=== PATIENT | male | born 1965 | race African-American/Black ===

== ENCOUNTER 2023-01-13 17:15 | Inpatient (IN) | payer OTHER ==
[~2023-01-13] VITALS: Ht 195.6 cm; Wt 158.8 kg
--- NOTE | 2023-01-13 19:40 | NUR ---
RECEIVED PATIENT LYING ON THE BED, PATIENT IS AWAKE, ALERT AND ORIENTED X4, DENIES PAIN, IN NO ACUTE DISTRESS. PATIENT'S BILATERAL LOWER EXTREMITIES WRAPPED WITH RAFAEL BANDAGE. PATIENT HAS G22 ON LEFT AC, IV ACCESS SITE, LINE IS INTACT AND PATENT, SALINE LOCK. PATIENT IS CONTINENT OF BLADDER, HAS URINAL AT BEDSIDE. CALL LIGHT WITHIN REACH.
[2023-01-13 20:00] VITALS: BP 143/80
--- NOTE | 2023-01-13 20:10 | NUR ---
VITALS TAKEN T 97.5, P 74, BP 143/80, RESP 18, O2 SATS 94% ON ROOM AIR.
--- NOTE | 2023-01-13 21:47 | NUR ---
1810: RECEIVED PT FROM ADMITTING. PT AMBULATED TO BED WITH A STEADY GAIT. NO C/O PAIN OR SOB. NO ACUTE DISTRESS NOTED AT THIS TIME. [id number].
--- NOTE | 2023-01-13 21:48 | NUR ---
1939: REPORT OFF TO OBED MICHELE. PT RESTING IN BED. DENIES ANY SOB OR PAIN. NO ACUTE DSITRESS NOTED AT THIS TIME. [id number].
[2023-01-14] MEDS ORDERED: ACETAMINOPHEN 325 MG TAB PO PRN
[2023-01-14] MEDS ORDERED: ONDANSETRON 4 MG/2 ML VIAL IVP PRN
[2023-01-14] MEDS ORDERED: LORazepam 2 MG/ML VIAL IVP PRN
[2023-01-14] MEDS ORDERED: MORPHINE SULFATE 2 MG/ML SYR IVP PRN
[2023-01-14] MEDS: NACL 0.9% 1,000 ML IV SCH ×3 (00:28→08:44)
--- NOTE | 2023-01-14 00:28 | NUR ---
PATIENT STARTED ON NS @125 ML/HR ORDERED ON LEFT AC G22 ACCESS SITE. LINE PATENT AND INTACT. PATIENT DENIES PAIN UPON ASSESSMENT, NO DISTRESS NOTED. CALL LIGHT WITHIN REACH. WILL CONTINUE TO MONITOR THE PATIENT.
--- NOTE | 2023-01-14 03:00 | NUR ---
WOUND CARE DONE ON WOUNDS ON R/L FOOT, DRESSING CHANGED, PICTURES TAKEN.
[2023-01-14 04:00] VITALS: BP 151/64
--- NOTE | 2023-01-14 04:00 | NUR ---
PATIENT IS AWAKE, DENIES PAIN, NO DISTRESS NOTED. CALL LIGHT WITHIN REACH.
[2023-01-14 06:02] LABS: BASOPHILS # (AUTO) 0.1 K/uL (0.00-0.22); BASOPHILS % (AUTO) 0.9 % (0.0-2.0); EOSINOPHILS # (AUTO) 0.4 K/uL (0-0.4); EOSINOPHILS % (AUTO) 6.9 % (0.0-4.0); HEMATOCRIT 28.5 % (36-52); HEMOGLOBIN 9.5 g/dL (12.0-18.0); LYMPHOCYTES # (AUTO) 1.3 K/uL (2.0-11.5); LYMPHOCYTES % (AUTO) 22.4 % (20.5-51.1); MEAN CORPUSCULAR HEMOGLOBIN 30 pg (27-31); MEAN CORPUSCULAR HGB CONC 33 g/dL (33-37); MEAN CORPUSCULAR VOLUME 88.4 fL (80-94); MONOCYTES # (AUTO) 0.7 K/uL (0.8-1.0); NEUTROPHILS # (AUTO) 3.4 K/uL (1.8-7.7); NEUTROPHILS % (AUTO) 57.8 % (42.2-75.2); PLATELET COUNT (AUTO) 171 K/uL (140-450); RED BLOOD CELL COUNT(AUTO) 3.22 MIL/uL (4.20-6.10); RED CELL DISTRIBUTION WIDTH 13.8 % (11.6-13.7); WHITE BLOOD COUNT (AUTO) 5.9 K/uL (4.8-10.8)
--- NOTE | 2023-01-14 06:47 | NUR ---
PATIENT IS IN STABLE CONDITION. WILL ENDORSE TO DAY NURSE FOR CONTINUITY OF CARE.
[2023-01-14] MEDS ORDERED: PIPERACILLIN/TAZOBACTAM 3.375 GM in DEXTROSE 5% 50 ML IV SCH (07:03)
--- NOTE | 2023-01-14 07:10 | NUR ---
RECEIVED REPORT FROM OBED FOR CONTINUITY OF CARE. INITIAL ASSESSMENT DONE. ALERT AND ORIENTED X 4. IVF INFUSING WELL. NO C/O PAIN OR DISCOMFORT. CALL LIGHT KEPT WITHIN REACH. WILL CONTINUE TO MONITOR.
--- NOTE | 2023-01-14 07:25 | NUR ---
Patient's Plan of Care was discussed and reviewed with STEEL WELDER: []Lianet
[2023-01-14 08:00] VITALS: BP 177/79
[2023-01-14 08:36] LABS: ALBUMIN 2.7 g/dL (3.4-5.0); ANION GAP 16.9 (8-16); CARBON DIOXIDE 24.8 mmol/L (21-32); CREATININE 1.7 mg/dL (0.6-1.3); MAGNESIUM 1.4 mg/dL (1.8-2.4); POTASSIUM 4.7 mmol/L (3.5-5.1); TOTAL BILIRUBIN 0.3 mg/dL (0.0-1.0)
--- NOTE | 2023-01-14 09:17 | NUR ---
PATIENT HAS BEEN SCREENED AND CATEGORIZED MODERATE NUTRITION RISK. PATIENT WILL BE SEEN WITHIN 3-5 DAYS OF ADMISSION. REVIEWED BY MARA KOTHARI RD
[2023-01-14] MEDS ORDERED: VANCOMYCIN PER PHARMACY MC PRN (09:20)
[2023-01-14] MEDS: NIFEdipine 90 MG TABER PO SCH (10:02)
--- NOTE | 2023-01-14 10:02 | NUR ---
SCHEDULED MEDICATION GIVEN. TOLERATING WELL.
--- NOTE | 2023-01-14 10:49 | NUR ---
WOUND CONSULT PENDING, POC DISCUSSED WITH DR. SAEID MCKEON PODIATRY CONSULT WITH DR. GARCIA. DR. GARCIA NOTIFIED.
[2023-01-14] MEDS: APIXABAN 2.5 MG TAB PO SCH ×2 (12:11→20:56)
--- NOTE | 2023-01-14 12:11 | NUR ---
SCHEDULED MEDICATIONS GIVEN. TOLERATING WELL.
[2023-01-14] MEDS: GABAPENTIN 300 MG CAP PO SCH ×2 (12:12→20:57)
[2023-01-14] MEDS: VANCOMYCIN 1,500 MG in DEXTROSE 5% 500 ML IV SCH (12:28)
--- NOTE | 2023-01-14 12:28 | NUR ---
VANCOMYCIN IV WAS GIVEN BY FRIDA MICHELE. TOLERATING WELL.
--- NOTE | 2023-01-14 13:05 | NUR ---
[facility] AT BEDSIDE TO HAND POTTER PT FOR MRI AT [facility]. PER PARAMEDICS PT NEEDS FOR BARIATRIC GURNEY. THEY WILL COME BACK WITH NO ETA.
[2023-01-14 13:46] LABS: APPEARANCE,URINE CLEAR (CLEAR); BILIRUBIN,URINE NEGATIVE (NEGATIVE); BLOOD, URINE 2+ (NEGATIVE); COLOR,URINE YELLOW (YELLOW); LEUKOCYTE ESTERASE ,URINE NEGATIVE (NEGATIVE); NITRITE, URINE NEGATIVE (NEGATIVE); PH,URINE 6.5 (5.0-9.0); UGLUCOSE NEGATIVE (NEGATIVE)
--- NOTE | 2023-01-14 14:24 | NUR ---
PT LEFT. SCHEDULED FOR MRI AT [facility] [place]. TRANSPORTED BY [facility] VIA GURNEY. ACCOMPANIED BY 4 MAL[employer] TRANSPORTER. REMAINS STABLE.
[2023-01-14] MEDS: PIPERACILLIN/TAZOBACTAM 3.375 GM in DEXTROSE 5% 50 ML IV SCH ×2 (15:03→20:55)
[2023-01-14 15:53] LABS: RBC,URINE 11-20 (MOD) /HPF (0-5); WBC,URINE NONE SEEN /HPF (0-5)
--- NOTE | 2023-01-14 16:34 | NUR ---
DC PLANNING ADMITTED A 57 YEAR OLD PATIENT FOR DIABETIC FOOT ULCER .MRI OF LEFT FOOT REQUESTED.ARRANGEMENT FOR [facility] DONE AT [facility]..PATIENT PICKED UP AT 1350.
--- NOTE | 2023-01-14 16:47 | NUR ---
DC PLANNING ASSESSMENT COMPLETE PLEASE REFER TO ASSESSMENT FOR ADDITIONAL DETAILS [facility] CURRENTLY WORKING ON TRANSFER TO [place] FOR MRI. TRISHA UNABLE TO FINISH ASSESSMENT NEPH CAME IN TO MEET PT AT BEDSIDE. TRISHA ATTEMPTED TO MEET PT AT BEDSIDE HOWEVER PT GONE FOR MRI. SW TO FOLLOW ON 01/17 IF PATIENT STILL ADMITTED. Addendum: 01/14/23 at 1648 by Johan PEPE Amended: Links added.
--- NOTE | 2023-01-14 16:52 | NUR ---
PT RETURN FROM MRI. TRANSPORTED BY [facility] VIA GURNEY. ALERT AND ORIENTED X 4. RESP. EVEN AND UNALORED. IV SITE INTACT TO LAC. NO C/O PAIN OR DISCOMFORT. WILL CONTINUE TO MONITOR.
--- NOTE | 2023-01-14 19:10 | NUR ---
PT MAGNESIUM 1.4.DR. BREAUX NOTIFIED, AWAITING FOR RESPONSE.
--- NOTE | 2023-01-14 19:25 | NUR ---
REPORT GIVEN TO NIGHT NURSE DEBORAH FOR CONTINUITY OF CARE. REMAINS STABLE.
--- NOTE | 2023-01-14 19:30 | NUR ---
RECEIVED REPORT FROM DAY SHIFT RN FOR CONTINUITY OF CARE. PT IS AWAKE AND ALERT RESTING IN BED. PT NOT IN ANY DISTRESS. PT HAS BANDAGE ON BILATERAL FEET WITH ULCERS. PT HAS LEFT AC 22 GAUGE RUNNING NS 125 CC/HR. POC DISCUSSED. CALL LIGHT WITHIN REACH. WILL CONTINUE TO MONITOR THE PT.
[2023-01-14] MEDS ORDERED: MAG SULF 2000 MG/WATER PREMIX 50 ML IV ONE (19:45)
[2023-01-14 20:00] VITALS: BP 153/75
[2023-01-14] MEDS: INSULIN LISPRO SLIDING SCALE 100 UNITS/ML VIAL SUBQ PRN (20:56)
[2023-01-14] MEDS: carvediloL 6.25 MG TAB PO SCH (20:57)
[2023-01-14] MEDS: BLOOD GLUCOSE MONITORING 1 DEV DEV FS SCH (20:57)
--- NOTE | 2023-01-14 22:30 | NUR ---
PT MAG IS 1.4. MESSAGED DR. BREAUX AND ORDERED MAG RIDER 2G. MAG RIDER WAS GIVEN.
[2023-01-15] MEDS: VANCOMYCIN 1,500 MG in DEXTROSE 5% 500 ML IV SCH ×3 (01:23→19:41)
--- NOTE | 2023-01-15 01:23 | NUR ---
SCHEDULE VANCO GIVEN RIGHT AFTER MAG RIDER WAS FINISHED. PT NOT IN ANY DISTRESS AT THIS TIME. WILL CONTINUE TO MONITOR.
[2023-01-15] MEDS: PIPERACILLIN/TAZOBACTAM 3.375 GM in DEXTROSE 5% 50 ML IV SCH ×3 (05:59→22:55)
--- NOTE | 2023-01-15 06:15 | NUR ---
PT WAS UNABLE TO RECEIVE FULL DOSE OF VANCOMYCIN. FIXED THE IV PUMP SEVERAL TIMES THROUGHOUT THE NIGHT BUT THE PUMP KEPT NOT WORKING PROPERLY. IV PUMP ENDED UP BEING DEFECTIVE. NEW IV PUMP PLACED AND ZOSYN WAS GIVEN.
[2023-01-15] MEDS: BLOOD GLUCOSE MONITORING 1 DEV DEV FS SCH ×4 (06:50→20:09)
--- NOTE | 2023-01-15 07:15 | NUR ---
ENDORSED PT TO DAY SHIFT RN FOR CONTINUITY OF CARE. PT IS STABLE.
--- NOTE | 2023-01-15 07:16 | NUR ---
RECEIVED BEDSIDE REPORT FROM NIGHTSHIFT NURSE. PT IS AWAKE IN BED, AOX4, NO SIGNS OF DISTRESS, NO REPORTS OF PAIN OR DISCOMFORT. ON RM AIR, IV TO LEFT AC 22G. NO FURTHER NEEDS ARE TO BE MET AT THIS TIME, WILL CONTINUE WITH CARE. BED IN LOWEST POSITION, 2 SIDE RAILS UP, CALL LIGHT PLACED WITHIN REACH. REORIENTED PT TO CALL LIGHT.
[2023-01-15 08:00] VITALS: BP 161/74
[2023-01-15] MEDS: NACL 0.9% 1,000 ML IV SCH ×3 (08:00→19:30)
[2023-01-15] MEDS: carvediloL 6.25 MG TAB PO SCH ×2 (10:00→20:09)
[2023-01-15] MEDS: GABAPENTIN 300 MG CAP PO SCH ×2 (10:00→20:09)
[2023-01-15] MEDS: LOSARTAN 25 MG TAB PO SCH (10:00)
[2023-01-15] MEDS: PANTOPRAZOLE 40 MG TABEC PO SCH (10:01)
[2023-01-15] MEDS: NIFEdipine 90 MG TABER PO SCH (10:01)
[2023-01-15] MEDS: APIXABAN 2.5 MG TAB PO SCH ×2 (10:02→20:08)
[2023-01-15 10:28] LABS: BASOPHILS % (AUTO) 0.5 % (0.0-2.0); EOSINOPHILS # (AUTO) 0.4 K/uL (0-0.4); EOSINOPHILS % (AUTO) 8.2 % (0.0-4.0); HEMATOCRIT 30.1 % (36-52); LYMPHOCYTES # (AUTO) 0.7 K/uL (2.0-11.5); MEAN CORPUSCULAR HEMOGLOBIN 29 pg (27-31); MEAN CORPUSCULAR HGB CONC 33 g/dL (33-37); MEAN CORPUSCULAR VOLUME 88.5 fL (80-94); MONOCYTES # (AUTO) 0.5 K/uL (0.8-1.0); MONOCYTES % (AUTO) 9.8 % (1.7-9.3); NEUTROPHILS # (AUTO) 3.3 K/uL (1.8-7.7); NEUTROPHILS % (AUTO) 67.5 % (42.2-75.2); PLATELET COUNT (AUTO) 190 K/uL (140-450); RED CELL DISTRIBUTION WIDTH 13.9 % (11.6-13.7); WHITE BLOOD COUNT (AUTO) 4.9 K/uL (4.8-10.8)
[2023-01-15 10:31] LABS: ANION GAP 10.7 (8-16); CARBON DIOXIDE 28.9 mmol/L (21-32); CREATININE 1.6 mg/dL (0.6-1.3); POTASSIUM 4.6 mmol/L (3.5-5.1)
--- NOTE | 2023-01-15 13:30 | NUR ---
DC'D PT IV TO LEFT AC, IVF AND IV MEDS NOT ADMINISTERING WELL. CHANGED IV TO RIGHT AC 20G, CLEAN, INTACT, PATENT. IVF AND IV MEDS RUNNING WELL. WILL CONTINUE WITH CARE.
[2023-01-15 16:00] VITALS: BP 135/68
--- NOTE | 2023-01-15 19:30 | NUR ---
ENDORSED PT TO BARREL AND RECEIVER ALIGNER NURSE. PT IS STABLE, NO FURTHER NEEDS ARE TO BE MET AT THIS TIME.
--- NOTE | 2023-01-15 19:31 | NUR ---
RECEIVED REPORT FROM DAY SHIFT RN FOR CONTINUITY OF CARE. PT IS AWAKE AND ALERT RESTING IN BED. PT NOT IN ANY DISTRESS. PT HAS BANDAGE ON BILATERAL FEET WITH ULCERS. PT HAS RIGHT AC 20 GAUGE RUNNING NS 75 CC/HR. POC DISCUSSED. CALL LIGHT WITHIN REACH. WILL CONTINUE TO MONITOR THE PT.
[2023-01-15] MEDS: INSULIN LISPRO SLIDING SCALE 100 UNITS/ML VIAL SUBQ PRN (20:08)
[2023-01-16] VITALS: BP 143/70
--- NOTE | 2023-01-16 | NUR ---
VITAL SIGNS TAKEN AND STABLE. PT IS NOT IN ANY DISTRESS AND DENIES PAIN. WILL CONTINUE TO MONITOR.
[2023-01-16] MEDS: VANCOMYCIN 1,500 MG in DEXTROSE 5% 500 ML IV SCH (03:09)
--- NOTE | 2023-01-16 03:10 | NUR ---
SCHEDULE MEDICATION GIVEN. NO ADVERSE REACTION NOTED. WILL CONTINUE TO MONITOR THE PT.
[2023-01-16] MEDS: PIPERACILLIN/TAZOBACTAM 3.375 GM in DEXTROSE 5% 50 ML IV SCH ×3 (06:04→20:11)
[2023-01-16 06:10] LABS: MAGNESIUM 1.5 mg/dL (1.8-2.4)
[2023-01-16] MEDS: BLOOD GLUCOSE MONITORING 1 DEV DEV FS SCH ×4 (06:36→20:56)
[2023-01-16] MEDS: INSULIN LISPRO SLIDING SCALE 100 UNITS/ML VIAL SUBQ PRN ×2 (06:36→17:45)
--- NOTE | 2023-01-16 07:03 | NUR ---
ENDORSED PT TO DAY SHIFT RN FOR CONTINUITY OF CARE. PT IS STABLE.
--- NOTE | 2023-01-16 07:04 | NUR ---
RECEIVED REPORT FROM NIGHTSHIFT NURSE. PT IS STABLE, AWAKE IN BED. NO SIGNS OR REPORTS OF PAIN OR DISTRESS. REORIENTED PT TO CALL LIGHT, NO FURTHER NEEDS ARE TO BE MET AT THIS TIME. WILL CONTINUE WITH CARE.
[2023-01-16 08:00] VITALS: BP 167/80
[2023-01-16] MEDS: LOSARTAN 25 MG TAB PO SCH (08:43)
[2023-01-16] MEDS: GABAPENTIN 300 MG CAP PO SCH ×2 (08:43→20:47)
[2023-01-16] MEDS: PANTOPRAZOLE 40 MG TABEC PO SCH ×2 (08:43→20:48)
[2023-01-16] MEDS: carvediloL 6.25 MG TAB PO SCH ×2 (08:43→20:46)
[2023-01-16] MEDS: NIFEdipine 90 MG TABER PO SCH (08:44)
[2023-01-16] MEDS: APIXABAN 2.5 MG TAB PO SCH ×2 (08:44→20:47)
[2023-01-16] MEDS: NACL 0.9% 1,000 ML IV SCH ×2 (08:50→22:10)
[2023-01-16 09:35] LABS: EOSINOPHILS # (AUTO) 0.4 K/uL (0-0.4); EOSINOPHILS % (AUTO) 9.4 % (0.0-4.0); HEMATOCRIT 31.7 % (36-52); HEMOGLOBIN 10.6 g/dL (12.0-18.0); LYMPHOCYTES # (AUTO) 0.8 K/uL (2.0-11.5); LYMPHOCYTES % (AUTO) 18.7 % (20.5-51.1); MEAN CORPUSCULAR HEMOGLOBIN 30 pg (27-31); MEAN CORPUSCULAR HGB CONC 34 g/dL (33-37); MONOCYTES # (AUTO) 0.5 K/uL (0.8-1.0); MONOCYTES % (AUTO) 10.5 % (1.7-9.3); NEUTROPHILS # (AUTO) 2.6 K/uL (1.8-7.7); NEUTROPHILS % (AUTO) 60.4 % (42.2-75.2); PLATELET COUNT (AUTO) 204 K/uL (140-450); RED CELL DISTRIBUTION WIDTH 14.2 % (11.6-13.7); WHITE BLOOD COUNT (AUTO) 4.4 K/uL (4.8-10.8)
[2023-01-16 09:54] LABS: ANION GAP 7.2 (8-16); CARBON DIOXIDE 30.1 mmol/L (21-32); CREATININE 1.7 mg/dL (0.6-1.3); POTASSIUM 4.3 mmol/L (3.5-5.1)
[2023-01-16 16:00] VITALS: BP 129/83
--- NOTE | 2023-01-16 19:00 | NUR ---
ENDORSED PT TO NIGHTSHIFT NURSE FOR CONTINUITY OF CARE. PT STABLE, NO SIGNS OF DISTRESS, NO REPORTS OF PAIN. BED IN LOWEST POSITION, SIDE RAILS UP, CALL LIGHT WITHIN REACH.
--- NOTE | 2023-01-16 19:36 | NUR ---
RECEIVED REPORT FROM DAY SHIFT NURSE FOR CONTINUITY OF CARE. PT IS AWAKE, A&O X4. CURRENTLY ON ROOM AIR WITH NO SIGNS OF ACUTE DISTRESS NOTED. NO PAIN STATED AT THIS TIME. PT IS ON BED REST AT THIS TIME AND IS CONTINENT, URINAL AT BEDSIDE. IV SITE TO RIGHT AC 20 GAUGE. PT HAS WOUNDS TO BILATERAL LE. LEFT FOOT WOUND IS INFECTED. CALL LIGHT WITHIN REACH, BED TO LOWEST POINT.
--- NOTE | 2023-01-16 20:41 | NUR ---
SCHEDULED MEDICATIONS ADMINISTERED. PT TOLERATED WELL. LAST BLOOD GLUCOSE CHECK = 116, NO COVERAGE NEEDED. WILL CONTINUE TO MONITOR.
[2023-01-16] MEDS ORDERED: DOCUSATE SOD/SENNA 50/8.6 MG 1 TAB PO SCH (21:00)
[2023-01-17] VITALS (7 sets, daily range): BP systolic 145–151; BP diastolic 70–79
--- NOTE | 2023-01-17 02:09 | NUR ---
PT ASLEEP. NO VISIBLE SIGNS OF DISTRESS NOTED. WILL CONTINUE TO MONITOR THE PT.
--- NOTE | 2023-01-17 04:57 | NUR ---
990 ML DRAINED FROM URINAL. NO BM. WILL ENDORSE TO DAY SHIFT NURSE IN STABLE CONDITION.
[2023-01-17] MEDS: PIPERACILLIN/TAZOBACTAM 3.375 GM in DEXTROSE 5% 50 ML IV SCH ×2 (05:00→13:49)
[2023-01-17] MEDS: BLOOD GLUCOSE MONITORING 1 DEV DEV FS SCH ×3 (06:32→16:30)
--- NOTE | 2023-01-17 06:33 | NUR ---
PT LAST BLOOD GLUCOSE CHECK = 117, NO COVERAGE NEEDED. STILL NO BM LAST NIGHT. WILL ENDORSE TO DAY SHIFT NURSE FOR CONTINUITY OF CARE.
--- NOTE | 2023-01-17 07:00 | NUR ---
RECEIVED BEDSIDE REPORT FROM NIGHTSHIFT NURSE. PT IS AWAKE IN BED, VITAL SIGNS STABLE, NO SIGNS OF DISTRESS, NO REPORTS OF PAIN. REORIENTED PT TO CALL LIGHT. NO FURTHER NEEDS ARE TO BE MET AT THIS TIME, WILL CONTINUE WITH CARE.
[2023-01-17] MEDS: LOSARTAN 25 MG TAB PO SCH (09:29)
[2023-01-17] MEDS: carvediloL 6.25 MG TAB PO SCH (09:30)
[2023-01-17] MEDS: NIFEdipine 90 MG TABER PO SCH (09:30)
[2023-01-17] MEDS: PANTOPRAZOLE 40 MG TABEC PO SCH (09:30)
[2023-01-17] MEDS: GABAPENTIN 300 MG CAP PO SCH (09:30)
[2023-01-17 09:38] LABS: EOSINOPHILS # (AUTO) 0.4 K/uL (0-0.4); EOSINOPHILS % (AUTO) 8.8 % (0.0-4.0); HEMATOCRIT 33.5 % (36-52); HEMOGLOBIN 11.1 g/dL (12.0-18.0); LYMPHOCYTES % (AUTO) 22.3 % (20.5-51.1); MEAN CORPUSCULAR HEMOGLOBIN 29 pg (27-31); MEAN CORPUSCULAR HGB CONC 33 g/dL (33-37); MEAN CORPUSCULAR VOLUME 88.6 fL (80-94); MONOCYTES # (AUTO) 0.5 K/uL (0.8-1.0); MONOCYTES % (AUTO) 9.8 % (1.7-9.3); NEUTROPHILS # (AUTO) 2.7 K/uL (1.8-7.7); NEUTROPHILS % (AUTO) 58.1 % (42.2-75.2); PLATELET COUNT (AUTO) 226 K/uL (140-450); RED BLOOD CELL COUNT(AUTO) 3.78 MIL/uL (4.20-6.10); WHITE BLOOD COUNT (AUTO) 4.6 K/uL (4.8-10.8)
[2023-01-17] MEDS: APIXABAN 2.5 MG TAB PO SCH (09:39)
[2023-01-17 09:48] LABS: ANION GAP 9.5 (8-16); CREATININE 1.8 mg/dL (0.6-1.3); POTASSIUM 4.5 mmol/L (3.5-5.1)
--- NOTE | 2023-01-17 10:46 | NUR ---
WOUND CARE NOTE: PT. SEEN AND ALY BY DR GARCIA, NO ORDERS PLACED. POC DISCUSSED WITH PT. PT IS AAX4, POC DISCUSSED WITH UNNA BOOT WRAPPING TO BLE. PER PT HIS FRIEND GAVE HIM SOME KIND OF ENERGY DRINK AND MADE HIS SKIN WITH ALLERGY. HE DOES NOT WANT ANY MEDICATED WRAP TO HIS LEGS. PER PT. HIS SISTER WRAP HIS BLE WITH GAUZES AND RAFAEL BANDAGE WEEKLY FOR THADDEUS CONTROL AND LIKE TO STAY THAT WAY. PT. PARTICIPATE IN DISCUSSION WITH CERTAIN WOUND CARE SUPPLIES, FREQUENCY AND PRODUCTS THAT HE LIKE TO USE FOR MULTIPLE DIABETIC ULCERS. PT AGREEABLE WITH SILVER ALGINATE DRESSING AND PER PT. HE IS ABLE TO DRESS HIS FOOT WOUNDS AT HOME. POC DISCUSSED WITH PRIMARY RN KOKI. -RIGHT PLANTAR DIABETIC ULCER 1.5X1.5X0.2CM. WOUND BED 100% PINK GRANULATION TISSUE, MOIST, NO ODOR, WOUND EDGE FLAT, PAMELA-WOUND THIN SCALY SKIN, NO ODOR. PAIN 0/10. -LEFT LATERAL PLANTAR FOOT DIABETIC ULCER 0.8X0.5X0.7CM. TUNNEL WOUND, WOUND BED 100% PINK GRANULATION TISSUE, MODERATE AMOUNT SEROUS DRAINAGE, NO ODOR, WOUND EDGE FLAT, PAMELA-WOUND THIN SCALY SKIN, NO ODOR. PAIN 0/10. -LEFT PLANTAR FOOT DIABETIC ULCER 1X0.5X0.3CM. UNDERMINING TO 9 O'CLOCK 0.5CM, WOUND BED 100% PINK GRANULATION TISSUE, MODERATE AMOUNT SEROUS DRAINAGE, NO ODOR, WOUND EDGE FLAT, PAMELA-WOUND THIN SCALY SKIN, NO ODOR. PAIN 0/10. -LEFT MEDIAL PLANTAR DIABETIC ULCER 1X1X0.2CM. WOUND BED 100% PINK GRANULATION TISSUE, MOIST, NO ODOR, WOUND EDGE FLAT, PAMELA-WOUND THIN SCALY SKIN, NO ODOR. PAIN 0/10. -LEFT HEEL DRY THICK BROWN SCABS WITH MULTIPLE DRY FISSURES, NO OPEN WOUNDS RECOMMENDATIONS: -ELEVATED BLE WITH PILLOWS -CLEANSE RIGHT AND LEFT FOOT MULTIPLE DIABETIC ULCERS WITH WOUND CARE SOLUTION, PAT DRY, APPLY SILVER ALGINATE DRESSING ABD COVER WITH DRY DRESSING, WRAP WITH KERLIX ROLL AND RAFAEL BANDAGE QD AND PRN IF SOILING.
[2023-01-17] MEDS ORDERED: VANCOMYCIN 1,000 MG in NACL 0.9% 250 ML IV SCH (11:00)
--- NOTE | 2023-01-17 11:00 | NUR ---
PT HAS VANCOMYCIN DUE. INSTRUCTIONS PER MD STATE TO HAVE VANCO TROUGH TAKEN AND ASSESSED 1HR BEFORE ADMINISTRATION. WAITING ON VANCO TROUGH TO BE TAKEN. WILL ADMINISTER ONCE RESULTS AVAILABLE.
[2023-01-17] MEDS ORDERED: ALGINATE ROPE MC PRN (11:20)
[2023-01-17] MEDS: NACL 0.9% 1,000 ML IV SCH (11:30)
[2023-01-17] MEDS ORDERED: ALGINATE ROPE MC SCH (13:00)
[2023-01-17] MEDS ORDERED: AMOX-1230 PO (13:02)
--- NOTE | 2023-01-17 13:48 | NUR ---
RECEIVED ORDER FOR PATIENT TO SNF FOR CONTINUE OF CARE. ALL PAPERWORK FAXED TO [facility]NOTE 3] & [facility] LOCATED AT [address] [id number]. SPOKE WITH OLIVIA FROM [facility]NOTE 3] PATIENT WAS ACCEPTED AND WILL BE GOING TO ROOM 104-[address] UNDER DR COMER. [facility] TRANSPORTATION IS BEING SET UP OLIVIA FROM [facility]NOTE 3] WITH A [id number] NURSE PRACTITIONER PER DIEM TIME. WILL FOLLOW UP WITH CONFIRMED RIDE DETAILS.
[2023-01-17] MEDS: INSULIN LISPRO SLIDING SCALE 100 UNITS/ML VIAL SUBQ PRN (14:00)
--- NOTE | 2023-01-17 19:25 | NUR ---
PT INFORMED OF DISCHARGE. DISCHARGE INSTRUCTIONS PROVIDED, PT VERBALIZE UNDERSTANDING. ALL MEDS PASSED. PT IS STABLE AND IN BED. PT BELONGINGS GATHERED AND RETURNED TO PT. IV REMOVED. PT WAITING FOR TRANSPORT, [facility]IA [facility]. [facility]. ENDORSED PT TO NIGHTSHIFT NURSE FOR CONTINUITY OF CARE.
--- NOTE | 2023-01-17 19:30 | NUR ---
RECEIVED REPORT FROM DAY SHIFT NURSE KOKI FOR CONTINUITY OF CARE. PT SITTING IN BED. RESPIRATIONS EVEN AND UNLABORED ON RA. NO DISTRESS NOTED. NO SIGNS OF PAIN. NO DISTRESS NOTED. NO IV SITE PRESENT. PT FOR DISCHARGE. DC PAPERS ALREADY SIGNED BY PT AND IN CHART. AWAITING FOR PICK-UP. CALL LIGHT WITHIN REACH. SAFETY PRECAUTIONS IN PLACE. Addendum: 01/17/23 at 2010 by Catrachito Viera LVN NOTED BILATERAL FOOT COVERED WITH BANDAGE. DC PHOTOS TAKEN AND ON CHART PER AM NURSE.
--- NOTE | 2023-01-17 19:50 | NUR ---
PT PICKED UP BY TRANSPORT STAFF [facility]IA [facility] [facility]. PT DC TO [facility]. ALL BELONGINGS TAKEN UPON DC. PT IS STABLE.
== END 2023-01-17 19:55 | DRG 638 ==
LOC: MMU 17:15
PROVIDERS: ADMIT Student in an Organized Health Care Education/Training Program; ATTEND Student in an Organized Health Care Education/Training Program
DX: E11.621 Type 2 diabetes mellitus with foot ulcer (principal); E44.0 Moderate protein-calorie malnutrition; L03.116 Cellulitis of left lower limb; Z68.41 Body mass index [BMI] 40.0-44.9, adult; E11.69 Type 2 diabetes mellitus with other specified complication; L97.529 Non-pressure chronic ulcer of other part of left foot with unspecified severity; E11.65 Type 2 diabetes mellitus with hyperglycemia; E78.5 Hyperlipidemia, unspecified; D50.9 Iron deficiency anemia, unspecified; E83.42 Hypomagnesemia; I12.9 Hypertensive chronic kidney disease with stage 1 through stage 4 chronic kidney disease, or unspecified chronic kidney disease; E11.22 Type 2 diabetes mellitus with diabetic chronic kidney disease; N18.9 Chronic kidney disease, unspecified; E11.51 Type 2 diabetes mellitus with diabetic peripheral angiopathy without gangrene; D64.9 Anemia, unspecified; Z86.718 Personal history of other venous thrombosis and embolism; Z89.412 Acquired absence of left great toe; Z91.012 Allergy to eggs; Z91.010 Allergy to peanuts; Z88.8 Allergy status to other drugs, medicaments and biological substances; Z91.018 Allergy to other foods; Z79.899 Other long term (current) drug therapy; N17.9 Acute kidney failure, unspecified
CPT/HCPCS: 36415; 73630; 76770; 80048; 80053; 80202; 81001; 82948; 83735; 84100; 84300; 85025; 87081; 97110; 97116; 97530; J2543; J3370; J3475; J7030; J7060; Q0092